=== PATIENT | male | born 1970 | race Caucasian/White ===

== ENCOUNTER → 2018-04-04 06:27 | Outpatient (CLI) | payer BC, SELFPAY ==
--- NOTE | 2018-04-04 06:30 | CA_ITS ---
PROCEDURE: 2-D M-mode and color Doppler study INDICATIONS FOR THE TEST: Chest pain X COPD Heart Murmur Tobacco Smoking Palpitations Fatigue Syncope Edema HypertensionXDiabetes Mellitus Rheumatic Fever SOBXDOE Obesity Hyperlipidemia Family History HD Additional History SVT PATIENT INFORMATION HEIGHT: 71 WEIGHT:187 GENDER: Male B/P:150/104 2-D/M-MODE INTERPRETATION: 2-D MEASUREMENTS OBSERVED VALUES IN CMS Right Ventricular Dimension (RVDd) 1.6 Interventricular Septum (Thickness)(IVsd) .9 Left Ventricular Internal Dimensions(LVIDd) 5.2 Left Ventricular Posterior Wall (Thickness)(LVPWd) 1.2 Aortic Root 3.3 Aortic Cusp Separation 1.9 Left Atrial Dimensions (LAD) 3.7 2D 1. Left atrium is qualitatively mildly enlarged, left ventricle is normal size, mild concentric left ventricular hypertrophy, visually estimated ejection fraction 55% with no obvious regional wall motion abnormality. 2. The right atrium and right ventricle are normal size and contractility. 3. The aortic valve is minimally thickened and fibrosed. 4. The mitral and tricuspid valve leaflets are minimally thickened. 5. The pulmonic valve is poorly visualized. 6. No significant pericardial effusion noted. DOPPLER INTERROGATION: Doppler interrogation of the aortic, mitral and tricuspid valvular presence of mild mitral and tricuspid regurgitation, tricuspid and jet velocity insufficient for calculation of the right ventricular systolic pressure, grade 1 diastolic dysfunction seen without tissue Doppler evidence of raised left atrial pressure. CONCLUSION: 1. Mildly enlarged left atrium, normal left ventricular size, mild concentric left ventricular hypertrophy, visually estimated ejection fraction 55% with no obvious regional wall motion abnormality, grade 1 diastolic dysfunction seen without tissue Doppler evidence of raised left atrial pressure. 2. Mild mitral and tricuspid regurgitation. 3. No significant pericardial effusion noted.
--- NOTE | 2018-04-04 06:30 | NM_ITS ---
History and Indications: Hypertension, hyperlipidemia, shortness of breath Procedure: Patient exercised on Rehan protocol 8 minutes and 44 seconds, resting heart rate was 76 resting blood pressure 151/96, with exercise maximum heart rate achieved was 1 58 bpm which is equal to 93% of the maximum] heart rate and a blood pressure was 198/80. Test was started due to shortness of breath patient denied complained of chest pain. Patient has good exercise capacity achieved 10.1mets of workload on treadmill, the blood pressure response to exercise was adequate. Electrocardiogram: Resting electrocardiogram showed sinus rhythm, with exercise occasional premature ventricular complex seen, less than 1.[address] segment depression noted from the baseline EKG. The EKG portion of the exercise Myoview is negative for ischemia. Cardiac stress and resting SPECT images: Cardiac stress and rest SPECT images were obtained using technetium 99 Myoview 31.7 mCi at stress 10.3 mCi at rest. Gated SPECT further analysis of segmental wall motion and calculation of the ejection fraction also done. Cardiac stress and rest images show uniform myocardial activity without any segmental perfusion abnormality, computer derived ejection fraction is 60% with no obvious regional wall motion abnormality, right ventricle is normal size and contractility. Conclusion: 1. The EKG portion of the exercise Myoview is negative for ischemia, patient has good exercise capacity achieved 10.1mets of workload on treadmill, the blood pressure response to exercise was adequate, there was no exercise-induced chest discomfort. 2. No obvious scintigraphic evidence of reversible ischemia seen computer derived ejection fraction is 50% with no obvious regional wall motion abnormality, right ventricle is normal size and contractility. 3. Normal exercise Myoview study.
== END ==
PROVIDERS: Family Provider Nurse Practitioner Family; PCP Nurse Practitioner; Visit Provider Internal Medicine
DX: I47.1 Supraventricular tachycardia (principal); I11.9 Hypertensive heart disease without heart failure
CPT/HCPCS: 78452; 93017; 93306; A9502

== ENCOUNTER → 2020-05-13 10:21 | Outpatient (CLI) | payer BC, SELFPAY ==
--- NOTE | 2020-05-13 10:35 | XR_ITS ---
PROCEDURE: XR ANKLE RT MIN 3V CLINICAL INDICATION: RT ANKLE INJURY Pain and bruising COMPARISON: No exams were available for comparison FINDINGS: No fracture or dislocation. No lytic or blastic change. There is normal mineralization. The joint spaces are well-preserved. No significant degenerative/arthritic changes. No erosive changes evident. Other findings:None. IMPRESSION: No acute findings. Dictated by: Ryan Stinson MD 05/13/2020 14:29 Electronically signed by Ryan Stinson MD in [place] 05/13/2020 14:29
== END ==
PROVIDERS: PCP Family Medicine; Visit Provider Nurse Practitioner Family
DX: S99.911A Unspecified injury of right ankle, initial encounter (principal)
CPT/HCPCS: 73610

== ENCOUNTER → 2021-02-10 15:57 | Outpatient (CLI) | payer BC, SELFPAY ==
[2021-02-10 17:07] LABS: Coronavirus 19 IgG Antibody Positive (Negative); Coronavirus 19 IgM Antibody Negative (Negative)
== END ==
PROVIDERS: Visit Provider Internal Medicine Gastroenterology
DX: Z01.812 Encounter for preprocedural laboratory examination (principal); Z20.822 Contact with and (suspected) exposure to COVID-19; Z12.11 Encounter for screening for malignant neoplasm of colon
CPT/HCPCS: 36415; 86328

== ENCOUNTER 2021-02-13 10:38 | Day surgery (SDC) | payer BC, SELFPAY ==
[2021-02-07 16:35] VITALS: BMI 26.4
[2021-02-13 11:08] VITALS: BP 130/70; PULSE 97; RESP 18; TEMP 36.3; O2SAT 99
--- NOTE | 2021-02-13 12:24 | HMH.PROC ---
[facility] Procedure Note Procedure Note:: Colonoscopy Procedure Report: Colonoscopy with cold snare polypectomy Endoscopist: Mamadou Buchanan II, MD Referring physician: Eladio Camacho MD Date of Procedure: February 13, 2021 Equipment: Olympus 190 variable stiffness pediatric colonoscope Sedation: MAC sedation Indication: Mr. Trujillo is a 51-year-old gentleman who is here for initial screening colonoscopy. He reports no abdominal pain, weight loss, change in his bowel habits or rectal bleeding. He reports no family history of colon cancer. Procedure: Prior to the procedure, a history and physical exam was performed, and patient's medications and allergies were reviewed. The risks, benefits and alternatives of the sedation and procedure were discussed with the patient. All questions were answered and informed consent was obtained. The patient was brought to the procedure room. Patient identification and proposed procedure were verified by the physician and the nurse. The patient was placed in a left lateral decubitus position and the scope was passed under direct vision. Throughout the procedure, the patient's blood pressure, pulse, and oxygen saturations were monitored continuously. The colonoscopy was accomplished without difficulty. The patient tolerated the procedure well. Findings: On digital rectal examination there was normal rectal tone. There were no external hemorrhoids. There was an early prostate nodule or firmness in the left upper lobe of the prostate. The remainder of the prostate was soft and symmetric. The colonoscope was introduced through the anal canal to the rectum and advanced to the cecum. The ileocecal valve and appendiceal orifice were identified. The scope was advanced a short distance into the ileum which appeared grossly normal. The scope was then withdrawn into the colon. The cecum, ascending and transverse colon and mucosa were grossly normal. There were 2 diminutive colon polyps (descending x1 (3 mm) and rectum x1 (3 mm)) which were both removed via cold snare polypectomy. There were scattered diverticuli throughout the descending and sigmoid colon (LEFT colon). The rectum itself was normal. Upon retroflexion within the rectum there were grade 1-2 internal hemorrhoids. The preparation was excellent throughout with [place] Preparation Score of 9. The cecal time was 12 minutes. Impression: 1. Diminutive colonic polyps x2 2. Left-sided diverticulosis 3. Grade 1-2 internal hemorrhoids 4. Possible early prostate nodule versus firm margin Plan: I will follow up the polyp pathology and recommend repeat colonoscopy again in 7-10 years based upon the polyp histology. I would encourage bulk fiber supplementation on a long-term daily maintenance basis. I would recommend diagnostic PSA if he has not had one recently.
[2021-02-13 12:26] VITALS: BP 86/57; PULSE 85; RESP 16; TEMP 36.1; O2SAT 95
[2021-02-13 12:36] VITALS: BP 88/56; PULSE 84; RESP 16; O2SAT 95
[2021-02-13 12:46] VITALS: BP 99/67; PULSE 84; RESP 16; O2SAT 98
[2021-02-13 12:56] VITALS: BP 100/70; PULSE 79; RESP 16; O2SAT 96
[2021-02-13 13:15] VITALS: BP 114/81; PULSE 77; RESP 16; TEMP 36.3; O2SAT 97
[2021-02-13 14:40] LABS: Prostate Specific Ag Screen 2.3 ng/ml (0.0-4.0)
--- NOTE | 2021-02-13 15:39 | HMH.ANESCL ---
[facility] Anesthesia Checklist - Patient Identification Patient Identification: Arm Band - Structural Data Admitted From: Home Planned Operative Procedure/s: Colonoscopy Consent for Planned Operative Procedure(s) Verified: Yes Verified Documents: Surgical Consent, History and Physical - Airway Assessment C-Spine Mobility Assessed: Yes TMJ Mobility Assessed: Yes Dentition: Good Dentition - Neurological Assessment Level of Consciousness: Awake, Alert - Anesthesia Plan Anesthesia Risk discussed: Yes Anesthesia Plan: Verified ASA Class: II Anesthesia Type: MAC [facility] History Medical History: Reports:: Supraventricular Tachycardia Denies:: Atrial Fibrillation, Cancer, Diabetes Mellitus Type 1, Diabetes Mellitus Type 2, Internal Pacemaker, MRSA, Myocardial Infarction, Seizures *Have you ever received a pneumonia vaccine?: No *Have you received a flu vaccine this season?: Yes Anesthesia experience/problems:: None Other Surgeries: Yes: No Previous Surgery. No: CABG, Coronary Stent, Pacemaker, Other Valve Replacement Amputation: No - *Social History Last grade of school completed: High school graduate Smoking Status: Never smoker Alcohol Intake: current Alcohol Intake Frequency:: a few times a month Substance Use Type: denies use *Occupational Status:: employed Housing: house Household Members: none *Travel in the last 8 weeks: None Family Hx:: No significant family history
== END 2021-02-13 13:15 | disposition home or self-care (01) ==
LOC: OUTP 10:39
PROVIDERS: PCP Family Medicine; Visit Provider Internal Medicine Gastroenterology
PROC: 0DJD8ZZ Inspection of Lower Intestinal Tract, Via Natural or Artificial Opening Endoscopic (ICD-10-PCS; CPT 45378; principal; 2021-02-13 12:00)
DX: Z12.11 Encounter for screening for malignant neoplasm of colon (principal); K63.5 Polyp of colon; K57.30 Diverticulosis of large intestine without perforation or abscess without bleeding; K64.0 First degree hemorrhoids; I10 Essential (primary) hypertension; Z86.79 Personal history of other diseases of the circulatory system; Z88.0 Allergy status to penicillin; Z79.899 Other long term (current) drug therapy
CPT/HCPCS: 45385; G0103; J2704

== ENCOUNTER → 2021-06-27 13:02 | Outpatient (CLI) | payer BC, SELFPAY ==
--- NOTE | 2021-06-27 13:05 | XR_ITS ---
PROCEDURE: XR KNEE RT 3V CLINICAL INDICATION: RT ANTERIOR KNEE PAIN, SWELLING OF RT KNEE JOINT COMPARISON: No exams were available for comparison FINDINGS: No fracture or dislocation. No lytic or blastic change. There is normal mineralization. There are minimal osteoarthritic changes involving the medial compartment and patellofemoral joint. No fracture or dislocation. No lytic or blastic change. Other findings:None. IMPRESSION: Minimal osteoarthritic change Dictated by: Ryan Stinson MD 06/27/2021 13:52 Ryan Stinson MD in [place] 06/27/2021 13:52
== END ==
PROVIDERS: PCP Family Medicine; Visit Provider Nurse Practitioner Family
DX: M25.561 Pain in right knee (principal); M25.461 Effusion, right knee
CPT/HCPCS: 73562

== ENCOUNTER 2022-02-27 15:42 | Emergency (ER) | payer BC, SELFPAY ==
[2022-02-27 16:18] VITALS: BP 126/93; PULSE 104; RESP 18; TEMP 37.2; O2SAT 100; BMI 27.1
--- NOTE | 2022-02-27 16:28 | HMH.EDUTC ---
[facility] [place] Disposition Clinical Impression: Viral syndrome Disposition: Home, Self-Care Condition on Discharge: Good Instructions: DI for Viral Syndrome Additional Instructions: Drink plenty of fluids. Take tylenol or ibuprofen for pain or fever. Follow up with your regular doctor. GO TO THE ER FOR ANY WORSENING SYMPTOMS Prescriptions: Ibuprofen [Ibuprofen 600mg Tablet] 600 mg PO Q6HP PRN #30 tab PRN Reason: Mild Pain Transmission Status: Received by [id number] Referrals: Doris Joe APRN [Primary Care Provider] - Time of Disposition: 17:15 Medical Decision Making - Medical Records Medical records reviewed: No: I reviewed the patient's medical records. - Niraj Inquiry Pt receiving controlled substance: No Vital Signs: 02/27/22 16:18 02/27/22 17:46 Temperature 99.0 F 99.0 F Temperature Source Oral Pulse Rate 90 Pulse Rate [Radial] 104 H Respiratory Rate 18 18 Blood Pressure 126/80 Blood Pressure [Right Arm] 126/93 H Blood Pressure Mean [Right Arm] 104 02 Sat by Pulse Oximetry 100 - Lab Data Lab results reviewed: Yes: I reviewed the patient's lab results. Lab Results 02/27/22 16:14: Influenza Type A Ag Negative, Influenza Type B Ag Negative 02/27/22 16:14: Group A Strep Rapid Negative Orders (Tests/Meds): ORDERS Category Date Time Status Strep Screen Confirmation Stat Micro 02/27/22 16:14 Received [facility] [place] HPI - General Stated complaint: Just not feeling good, body aches Time Seen by Provider: 02/27/22 16:29 Mode of Arrival: Ambulatory Source of Information: Patient Limitations: No Limitations Description of Symptoms (Recalled from Triage Doc. by RN): pt c/o not feeling well. he feels achy, slight cough, runny nose. generalized discomfort HEENT Symptoms (Recalled from RN notes): Yes Resp Symptoms (Recalled from RN notes): Yes Skin Symptoms (Recalled from RN notes): No MS Symptoms (Recalled from RN notes): No Functional Status (Recalled from RN notes): wnl - History of Present Illness Provider Complaint: He states that he has been feeling bad for the past 4 days. He has started to feel better today, but then he got very fatigued at work. He came here after work to be checked. - Related Data Home Medications Medication Instructions Recorded Confirmed lisinopriL [Prinivil 20mg Tablet] 20 mg PO DAILY 02/07/21 02/13/21 Previous Rx's Medication Instructions Recorded Ibuprofen [Ibuprofen 600mg 600 mg PO Q6HP PRN #30 tab 02/27/22 Tablet] Allergies Allergy/AdvReac Type Severity Reaction Status Date / Time Penicillins Allergy Unknown Verified 02/27/22 16:21 - Worker's Comp Is this a Worker's Comp case?: No [facility] History - Hepatitis A Screen Attestation statement:: This patient has been screened for Hepatitis A risk factors. I have reviewed the patient's past medical history: Yes Medical History: Reports:: Supraventricular Tachycardia Denies:: Atrial Fibrillation, Cancer, Diabetes Mellitus Type 1, Diabetes Mellitus Type 2, Internal Pacemaker, MRSA, Myocardial Infarction, Seizures Other Surgeries: Yes: No Previous Surgery. No: CABG, Coronary Stent, Pacemaker, Other Valve Replacement Amputation: No - Social History Smoking Status: Never smoker Alcohol Intake: current Alcohol Intake Frequency:: a few times a month Substance Use Type: denies use Occupational Status: employed Housing: house Household Members: none Family Hx:: No significant family history ROS Obtained: Yes All systems reviewed & no additional complaints - Constitutional Constitutional: Reports as per HPI - Eyes Eyes: Reports eye discharge - ENT Ears, Nose, Mouth, and Throat: Reports as per HPI - Cardiovascular Cardiovascular: Denies chest pain - Respiratory Respiratory: Reports chest congestion, Reports cough, Denies dyspnea, Denies stridor, Denies wheezing Physical Exam - General General appearance: alert, in no apparent dis
[2022-02-27 16:30] LABS: UTC Influenza A Antigen Negative (Negative); UTC Influenza B Antigen Negative (Negative)
[2022-02-27 16:53] LABS: Strep Scrn Group A (Rapid) Negative (Negative)
[2022-02-27 17:46] VITALS: BP 126/80; PULSE 90; RESP 18; TEMP 37.2
== END 2022-02-27 17:47 | disposition home or self-care (01) ==
PROVIDERS: Emergency Provider Nurse Practitioner Family; PCP Nurse Practitioner Family
DX: B34.9 Viral infection, unspecified (principal); M79.10 Myalgia, unspecified site; I47.1 Supraventricular tachycardia; Z79.1 Long term (current) use of non-steroidal anti-inflammatories (NSAID); Z79.899 Other long term (current) drug therapy; Z88.0 Allergy status to penicillin
CPT/HCPCS: 87430; 87804; 99213; G0463

== ENCOUNTER → 2022-05-12 10:00 | Outpatient (CLI) | payer BC, SELFPAY ==
[2022-05-12 11:10] LABS: Chloride 108 mmol/L (98-107); Sodium 139 mmol/L (136-145)
[2022-05-12 11:11] LABS: Potassium 4.5 mmoL/L (3.5-5.1)
[2022-05-12 11:13] LABS: Alanine Aminotransferase 85 U/L (12-78); Alkaline Phosphatase 69 U/L (38-126); Anion Gap 11.5 mEq/L (5-15); Aspartate Amino Transferase 58 U/L (17-59); Bilirubin,Total 0.7 mg/dl (0.2-1.3); Blood Urea Nitrogen 13 mg/dl (9-20); Carbon Dioxide 24 mmol/L (22.0-30.0); Cholesterol 240 mg/dl (140-200); Estimated Glomerular Filt Rate 88 ml/min (>60); GFR (African American) 106 ML/MIN (>60)
[2022-05-12 11:14] LABS: Albumin Level 4.6 g/dl (3.5-5.0); Albumin/Globulin Ratio 1.6 (1.1-1.8); Calcium 9.7 mg/dl (8.4-10.2); Chol/HDL Ratio 5.3 (1-3.5); Globulin 2.8 g/dL (1.3-3.2); Glucose 119 mg/dl (74-100); HDL Cholesterol 45 mg/dl (40-60); Total Protein,Serum 7.4 g/dl (6.3-8.2)
[2022-05-12 11:15] LABS: Triglycerides 441 mg/dl (30-150)
[2022-05-12 11:26] LABS: Direct LDL Cholesterol 107.93 mg/dL (100-129)
[2022-05-12 11:45] LABS: Prostate Specific Ag Screen 2.1 ng/ml (0.0-4.0)
== END ==
PROVIDERS: PCP Nurse Practitioner Family; Visit Provider Nurse Practitioner Family
DX: I10 Essential (primary) hypertension (principal); Z13.29 Encounter for screening for other suspected endocrine disorder; Z12.5 Encounter for screening for malignant neoplasm of prostate; Z79.899 Other long term (current) drug therapy
CPT/HCPCS: 36415; 80053; 80061; 84443; G0103

== ENCOUNTER → 2023-01-29 15:23 | Outpatient (CLI) | payer BC, SELFPAY ==
[2023-01-29 16:50] LABS: Basophils % 0.5 % (0.1-2.0); Eosinophils # 0.1 K/mm3 (0.0-0.4); Eosinophils % 1.2 % (0.1-12.0); Hematocrit 49.4 % (42.0-52.0); Hemoglobin 16.1 g/dL (14.1-18.0); Lymphocytes # 2.1 K/mm3 (0.7-4.5); Lymphocytes % 21.9 % (10-50); Mean Corpuscular HGB Conc 32.7 g/dL (31.8-35.4); Mean Corpuscular Hemoglobin 28.6 pg (27.0-31.2); Mean Corpuscular Volume 87.7 fl (80-94); Mean Platelet Volume 8.3 fl (7.4-10.4); Monocytes # 0.6 K/mm3 (0.1-1.0); Monocytes % 5.8 % (1.7-9.3); Neutrophils # 6.6 K/mm3 (1.8-7.8); Neutrophils % 70.6 % (37.0-80.0); Platelet Count 377 K/mm3 (142-424); Red Blood Count 5.64 M/mm3 (4.60-6.20); Red Cell Distribution Width 13.8 % (11.5-17.5); White Blood Count 9.4 K/mm3 (4.8-10.8)
[2023-01-29 17:16] LABS: Direct LDL Cholesterol 125.15 mg/dL (100-129)
[2023-01-29 17:18] LABS: Troponin I < 0.01 ng/ml (0.00-0.034)
[2023-01-29 17:21] LABS: Free T4 (Free Thyroxine) 1.12 ng/dl (0.78-2.19)
[2023-01-29 17:23] LABS: Alanine Aminotransferase 68 U/L (12-78); Albumin/Globulin Ratio 1.8 (1.1-1.8); Alkaline Phosphatase 42 U/L (38-126); Anion Gap 11.6 mEq/L (5-15); Aspartate Amino Transferase 42 U/L (17-59); Bilirubin,Total 0.5 mg/dl (0.2-1.3); Blood Urea Nitrogen 23 mg/dl (9-20); Carbon Dioxide 24 mmol/L (22.0-30.0); Chloride 104 mmol/L (98-107); Chol/HDL Ratio 5.3 (1-3.5); Cholesterol 226 mg/dl (140-200); Estimated Glomerular Filt Rate 57 ml/min (>60); GFR (African American) 69 ML/MIN (>60); Globulin 2.8 g/dL (1.3-3.2); Glucose 87 mg/dl (74-100); HDL Cholesterol 43 mg/dl (40-60); Magnesium 2.1 mg/dl (1.6-2.3); Potassium 4.6 mmoL/L (3.5-5.1); Sodium 135 mmol/L (136-145); Total Protein,Serum 7.8 g/dl (6.3-8.2); Triglycerides 300 mg/dl (30-150); VLDL Cholesterol 60 mg/dL (0-40)
[2023-01-29 17:36] LABS: Thyroid Stimulating Hormone 3.59 uIU/mL (0.465-4.68)
[2023-01-29 17:47] LABS: Ferritin 394 ng/ml (17.9-464)
[2023-01-29 17:56] LABS: Vitamin B12 266 pg/mL (239-931)
== END ==
PROVIDERS: PCP Nurse Practitioner Family; Visit Provider Nurse Practitioner Family
DX: R06.02 Shortness of breath (principal); R07.9 Chest pain, unspecified; Z98.890 Other specified postprocedural states
CPT/HCPCS: 36415; 80053; 80061; 82607; 82728; 83735; 84439; 84443; 84484; 85025

== ENCOUNTER → 2023-07-22 13:25 | Outpatient (CLI) | payer BC, SELFPAY ==
--- NOTE | 2023-07-22 13:27 | XR_ITS ---
FINAL REPORT CLINICAL HISTORY: Left shoulder pain, limited ROM COMPARISON: None FINDINGS: LEFT SHOULDER 3 views demonstrate no acute fracture or dislocation. The joint spaces appear normal. The visualized bony structures are well aligned. No soft tissue abnormality is seen. IMPRESSION: No acute process. Reviewed, Interpreted and Dictated by Dino Poe III, MD Transcribed by Liz Hernandez Authenticated and [facility]
== END ==
PROVIDERS: PCP Nurse Practitioner Family; Visit Provider Internal Medicine
DX: M25.512 Pain in left shoulder (principal)
CPT/HCPCS: 73030

== ENCOUNTER → 2023-08-07 14:32 | Outpatient (CLI) | payer BC, SELFPAY ==
--- NOTE | 2023-08-07 14:32 | MR_ITS ---
FINAL REPORT CLINICAL HISTORY: Suspected rotator cuff injury/SIS. WEAKNESS AND AND PAIN IN ARM COMPARISON: None FINDINGS: Multiplanar MR imaging of the left shoulder was performed without contrast. There is a partial tear of the articular surface of the supraspinatus tendon that involves greater than 50% of the thickness of the tendon. This tear extends to the anterior footprint of the infraspinatus tendon. No significant degenerative signal is noted in the acromioclavicular joint. There is a small amount of fluid in the subacromial subdeltoid bursa. The glenoid labrum is intact. The long head of the biceps tendon is intact. No significant glenohumeral joint effusion is seen. There is no evidence of fracture or dislocation. The musculature is intact. There is no evidence of soft tissue mass. IMPRESSION: There is a partial-thickness articular surface supraspinatus tendon tear involving greater then 50% of the thickness of the tendon which extends to the anterior footprint of the infraspinatus tendon. There is a small amount of fluid in the subacromial subdeltoid bursa. Reviewed, Interpreted and Dictated by Dino Poe III, MD Transcribed by Liz Hernandez Authenticated and [facility]
== END ==
LOC: RAD 14:32
PROVIDERS: PCP Internal Medicine; Visit Provider Internal Medicine
DX: S46.002A Unspecified injury of muscle(s) and tendon(s) of the rotator cuff of left shoulder, initial encounter; Y99.9 Unspecified external cause status; M75.42 Impingement syndrome of left shoulder
CPT/HCPCS: 73221

== ENCOUNTER 2023-10-07 10:00 | Outpatient (RCR) | payer BC, SELFPAY ==
--- NOTE | 2023-08-08 15:43 | HMH.OTOPEV ---
OT Inpatient Evaluation Rehab OT Outpatient Eval Start: 08/08/23 15:31 Freq: Status: Active Protocol: Document 08/08/23 15:31 RMARSHALAdelaide (Rec: 08/08/23 15:43 [email or web address] [id number]) E-signed By Stephania Mccauley, OT Outpatient Therapy Subjective History Subjective History Pt is a 53 year old male who reports to therapy for initial evaluation to left shoulder. Pt reports he has worked fulltime at [employer] and recently retired. During his job, for several years he has required repetitive use of bilateral UE's. He had pain intermittently while working, but since retiring (January 2023 ) his shoulder has become more painful and stiff . Pt has had a MRI completed and the following are the findings: There is a partial-thickness articular surface supraspinatus tendon tear involving greater then 50% of the thickness of thetendon which extends to the anterior footprint of the infraspinatus tendon. There is a small amount of fluid in the subacromial subdeltoid bursa. Upon observation, pt's AROM and strength are declined at left shoulder. Pt has most of his pain with flexion and internal rotation. Luckily, pt is right hand dominant. Pt is planning on going to see ortho for an evaluation in the near future. Therapist will continue to see patient twice a week in order to address left shoulder deficits. New diagnosis of cancer in past 12 No months? Chief Complaint Pain,Stiff,Weakness Symptom Type Ache,Throb,Sharp,Dull,Stabbing Symptoms Relieved By Nothing Symptoms Aggravated By Physical Activity,Lifting Prior Functional Limitations None Current Functional Limitations Reaching,Lifting,Housework, Dressing,Sleeping,Recreation Activity Symptom Description Intermittent,Activity Dependent Level of pain today (0-10) 0 Pain scale - at its best (0-10) 0 Pain scale - at its worst (0-10) 6 Shoulder/Elbow Eval Shoulder Objective Measurements Shoulder ROM Left Shoulder ROM Limitations Pain Shoulder Abduction Active Range of 148 degrees Motion (degrees) Shoulder Flexion Active Range of Motion 115 degrees (degrees) Query Text: Shoulder External Rotation Active Range 75 degrees of Motion (degrees) Shoulder Internal Rotation Active Range 20 degrees of Motion (degrees) pain with active ROM shoulder exam left standard pain with passive ROM shoulder exam left standard decreased ROM shoulder exam standard left Shoulder MMT Shoulder Abduction Strength Grade 3 Fair Shoulder Flexion Strength Grade 3 Fair Shoulder External Rotation Strength 3 Fair Grade Shoulder Internal Rotation Strength 3 Fair Grade Shoulder Strength Patient Testing Sitting Position Elbow Objective Measurements QuickDASH Activities Please rate your ability to do the following activities in the last week by selecting the number below the appropriate response. 1. Open a tight or new jar. Mild difficulty 2. Do heavy field support rep (e.g., wash No difficulty jin, floors). 3. Carry a shopping bag or briefcase. Mild difficulty 4. Wash your back. Mild difficulty 5. Use a knife to cut food. No difficulty 6. Recreational activities in which you Mild difficulty take some force or impact through your arm, shoulder, or hand (e.g., golf, hammering, tennis, etc.). 7. During the past week, to what extent Moderately has your arm, shoulder or hand problem interfered with your normal social activities with family, friends, neighbors or groups? 8. During the past week, were you Slightly limited limited in your work or other regular daily activites as a result of your arm, shoulder or hand problem? 9. Arm, shoulder or hand pain. Moderate 10. Tingling (pins and needles) in your None arm, shoulder or hand. 11. During the past week, how much Mild difficulty difficulty have you had sleeping because of the pain in your arm, shoulder or hand? Quick DASH 21 OT Outpatient Assessment Impairments Problems/Impairments Palpation Tenderness,Impaired Range of Motion,Impaired Strength,Impaired Endurance, Impaired Lifting,Impaired Dressing,Impaired Household Care,Impaired Recreational Activities,Subjective C/O Pain Prognosis Rehab Potential Good Clinical Impression Consistent with Diagnosis Yes Short Term Goals Number of Weeks 3 Increase Range of Motion Yes: Flex: 125 Abd: 155 ER: 80 IR: 50 Increase Strength Yes: 3+,4-/5 throughout left shoulder Increase Endurance Yes: Pt will tolerate L shoulder exercises for ~20 min prior to rest. 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 Decrease Subjective C/O Pain Yes: 2/10 at worst Patient to be Ind w/ Advanced HEP Yes: Advanced strengthening exercises Outpatient Therapy Plan of Care Treatment Plan May Include Therapeutic Exercise Including Home Yes Exercise Program Manual Therapy Techniques Yes Neuromuscular Re-education Yes Therapeutic Activities to Return to Yes Previous Functional/Work Level ADL/Self Care Education Yes Dry Needling Yes Thermal Modalities Yes Electrical Stimulation Yes Ultrasound/Phonophoresis Yes Iontophoresis Yes Orthotics/Bracing/Splinting Yes Massage Yes Eval/Re-Eval Yes Frequency Times per week 2 Duration Number of Weeks 6 Addendums This patient is a candidate for social No or vocational rehab? Patient/Guardian verbally acknowledges Yes understanding of treatment program and consents to further treatment? Patient/Guardian verbally acknowledges Yes understanding of diagnosis, prognosis and goals for treatment? Eval Complexity OT Charge 62714 - Moderate Complexity PHYSICIAN CERTIFICATION: I certify the specified therapy services for Darius Trujillo are required, authorized, and reviewed every 30 days.
--- NOTE | 2023-09-09 11:20 | HMH.RHREAS ---
Rehab Reassessment Rehab OP Re-assessment Start: 08/08/23 15:31 Freq: Status: Active Protocol: Document 09/09/23 11:13 JABIER (Rec: 09/09/23 11:19 JABIER [id number]) E-signed By Stephania Mccauley OT Rehab Re-assessment Subjective Subjective The pain isn't as often, but it's still there. Objective Objective Notes Pt continues to be seen to address left shoulder deficits . Each session, pt engages in AROM, AAROM, and strengthening exercises. Pt also receives prom manual therapy to left shoulder in all planes; flexion, abduction , ER, and IR. Modalities are provided to decrease pain/ inflammation. Assessment Progress Assessment Progressing as Expected Assessment Notes Pt very consistent about attending therapy sessions. Pt demonstrates improved AROM in all planes except for IR. IR remains significantly limited. Pt reports his pain still reaches a 7/10 at worst, but his pain is less frequent . Pt does have a follow up appointment with ortho set up at the beginning of October for re-evaluation of progress with therapy. Current AROM L shoulder Flex: 175 degrees Abd: 165 degrees IR: 25 degrees ER: 90 degrees Patient goals met [address], 3, and 5 Goals Not Met See below Revised Goals ST and 4 LT-5 New AROM goals: Flex: 175 degrees Abd: 170 degrees IR: 50 degrees ER: 90 degrees Plan Plan Continue with OT plan of care at this time until returning to doctor. Frequency of Therapy 2x's a week Duration of therapy 4 more weeks Time and Billing Re-Eval Time 12 Re-Eval Billing Units 1 PHYSICIAN CERTIFICATION: I certify the specified therapy services for Darius Trujillo are required, authorized, and reviewed every 30 days.
== END 2023-10-07 11:00 | disposition home or self-care (01) ==
LOC: OT 10:00
PROVIDERS: PCP Internal Medicine; Visit Provider Internal Medicine
DX: M25.512 Pain in left shoulder (principal); S46.002A Unspecified injury of muscle(s) and tendon(s) of the rotator cuff of left shoulder, initial encounter
CPT/HCPCS: 97010; 97014; 97110; 97140; 97164; 97166; 97530; G0283

== ENCOUNTER 2023-11-21 21:33 | Outpatient (CLI) | payer BC, SELFPAY ==
[2023-11-21 16:54] LABS: Adenovirus,PCR Not Detected (NotDetected); Coronavirus 19, PCR Not Detected (NotDetected); Coronavirus 229E Not Detected (NotDetected); Coronavirus NL63 Not Detected (NotDetected); Coronavirus OC43 Not Detected (NotDetected); Coronovirus HKU1,PCR Not Detected (NotDetected); Human Metapneumovirus Not Detected (NotDetected); Influenza A, PCR Not Detected (NotDetected); Influenza AH1, 2009 Not Detected (NotDetected); Influenza AH1, PCR Not Detected (NotDetected); Influenza AH3,PCR Not Detected (NotDetected); Influenza B, PCR Not Detected (NotDetected); Parainfluenza 1, PCR Not Detected (NotDetected); Parainfluenza 2, PCR Not Detected (NotDetected); Parainfluenza 3, PCR Not Detected (NotDetected); Parainfluenza 4, PCR Not Detected (NotDetected); Respiratory Syncytial Virus Not Detected (NotDetected); Rhinovirus/Enterovirus Not Detected (NotDetected)
== END 2023-11-21 23:59 ==
LOC: LAB.DROPOF 21:34
PROVIDERS: PCP Internal Medicine; Visit Provider Internal Medicine
DX: R05.9 Cough, unspecified (principal); R06.02 Shortness of breath; J02.9 Acute pharyngitis, unspecified; R09.81 Nasal congestion; R53.82 Chronic fatigue, unspecified
CPT/HCPCS: 87632; 87635

== ENCOUNTER 2024-01-20 10:13 | Outpatient (CLI) | payer BC, SELFPAY ==
[2024-01-20 10:45] LABS: Basophils # 0.1 K/mm3 (0-0.2); Basophils % 1.3 % (0.1-2.0); Eosinophils # 0.2 K/mm3 (0.0-0.4); Eosinophils % 3.3 % (0.1-12.0); Hematocrit 47.5 % (42.0-52.0); Hemoglobin 15.4 g/dL (14.1-18.0); Lymphocytes # 2.2 K/mm3 (0.7-4.5); Lymphocytes % 30.8 % (10-50); Mean Corpuscular HGB Conc 32.5 g/dL (31.8-35.4); Mean Corpuscular Hemoglobin 28.9 pg (27.0-31.2); Mean Corpuscular Volume 88.9 fl (80-94); Mean Platelet Volume 8.4 fl (7.4-10.4); Monocytes # 0.5 K/mm3 (0.1-1.0); Monocytes % 6.5 % (1.7-9.3); Neutrophils # 4.1 K/mm3 (1.8-7.8); Platelet Count 358 K/mm3 (142-424); Red Blood Count 5.34 M/mm3 (4.60-6.20); Red Cell Distribution Width 14.3 % (11.5-17.5); White Blood Count 7.1 K/mm3 (4.8-10.8)
[2024-01-20 11:12] LABS: Alanine Aminotransferase 58 U/L (12-78); Albumin Level 4.7 g/dl (3.5-5.0); Albumin/Globulin Ratio 1.7 (1.1-1.8); Alkaline Phosphatase 49 U/L (38-126); Anion Gap 13.1 mEq/L (5-15); Aspartate Amino Transferase 39 U/L (17-59); Bilirubin,Total 0.5 mg/dl (0.2-1.3); Blood Urea Nitrogen 20 mg/dl (9-20); Calcium 10.3 mg/dl (8.4-10.2); Carbon Dioxide 27 mmol/L (22.0-30.0); Chloride 107 mmol/L (98-107); Chol/HDL Ratio 4.8 (1-3.5); Cholesterol 230 mg/dl (140-200); Estimated Glomerular Filt Rate 63 ml/min (>60); GFR (African American) 76 ML/MIN (>60); Globulin 2.7 g/dL (1.3-3.2); Glucose 116 mg/dl (74-100); HDL Cholesterol 48 mg/dl (40-60); Potassium 5.1 mmoL/L (3.5-5.1); Sodium 142 mmol/L (136-145); Total Protein,Serum 7.4 g/dl (6.3-8.2); Triglycerides 272 mg/dl (30-150); VLDL Cholesterol 54 mg/dL (0-40)
[2024-01-20 11:25] LABS: Hemoglobin A1C 6.1 % (4.0-6.0)
[2024-01-20 11:46] LABS: Prostate Specific Ag Screen 3.2 ng/ml (0.0-4.0); Thyroid Stimulating Hormone 4.66 uIU/mL (0.465-4.68)
[2024-01-20 12:16] LABS: 25-OH Vitamin D, Total 22.2 ng/mL (30-100)
[2024-01-20 12:43] LABS: Free T4 (Free Thyroxine) 1.09 ng/dl (0.78-2.19)
[2024-01-21 05:13] LABS: HIV Screen 4th Generation wRfx Non Reactive (Non Reactive)
[2024-01-21 10:14] LABS: HCV Ab Non Reactive (Non Reactive)
== END 2024-01-20 23:59 ==
LOC: LAB.DROPOF 10:13
PROVIDERS: PCP Internal Medicine; Visit Provider Internal Medicine
DX: Z00.00 Encounter for general adult medical examination without abnormal findings (principal); Z13.220 Encounter for screening for lipoid disorders; Z13.21 Encounter for screening for nutritional disorder; Z13.29 Encounter for screening for other suspected endocrine disorder; E78.1 Pure hyperglyceridemia; I11.9 Hypertensive heart disease without heart failure; E55.9 Vitamin D deficiency, unspecified; R73.9 Hyperglycemia, unspecified; Z12.5 Encounter for screening for malignant neoplasm of prostate; Z11.4 Encounter for screening for human immunodeficiency virus [HIV]
CPT/HCPCS: 80053; 80061; 82306; 83036; 84439; 84443; 85025; 86703; G0103; G0432

== ENCOUNTER 2025-04-17 10:24 | Outpatient (CLI) | payer BC, SELFPAY ==
--- OUTSIDE RECORDS SUMMARY | 2025-04-17 10:27 | XMS_ITS | Encounter Summary ---
Author Organization [place] [address] Care Team Providers Care Reading Specialist Name Role Phone Angela Hurtado APRN Primary Care Provider Filipe Arcos MD Unavailable [phone] Encounter Details Date Type Department Care Team (Late st Contact Info) Description 05/20/2018 Orders Only [facility] [address] [facility] [address] [place] [address] Filipe Arcos MD [address] [place], [place] [id number] Social History Tobacco Use Types Packs/Day Years Used Date Smoking Tobacco: Never Smokeless Tobacco: Never Alcohol Use Standard Drinks/Week Comments No 0 (1 standard drink = 0.6 oz pur e alcohol) Sex and Gender Information Value Date Recorded Sex Assigned at Not on file Legal Sex Male 9:08 AM EDT Gender Identity Not on file Sexual Orientation Not on file documented as of this encounter Plan of Treatment Not on file documented as of this encounter Procedures Procedure Name Priority Date/Time Associated Diagnosis Comments EP LAB RECORDINGS Routine 05/20/2018 1:12 PM EDT documented in this encounter Results * EP LAB RECORDINGS (05/20/2018 1:12 PM EDT) 05/20/2018 1:12 PM EDT us Filipe Arcos MD CARDIAC CATH ORDERABLES Final Result [facility] [address] [place] [id number] documented in this encounter Visit Diagnoses Not on filedocumented in this encounter Care Teams Reading Specialist Relationship Specialty Start Date End Date Angela Hurtado APRN [address] [place] [address] PCP - General Nurse Practitioner-Family 04/25/18 Filipe Arcos MD [address] [facility] [place] [address] Consulting Physician Internal Medicine - Clinical Cardiac Electrophysiology 04/25/18 documented as of this encounter
--- OUTSIDE RECORDS SUMMARY | 2025-04-17 10:27 | XMS_ITS | Clinical Summary ---
Author Organization [facility] [place] Address [address] [facility] [address] [place] [address] Phone Care Team Providers Care Piler Name Role Phone Angela Hurtado APRN Primary Care Provider [phone] Filipe Arcos MD Unavailable [phone] Allergies Active Allergy Reactions Criticality Noted Date Comments Penicillins Other (See Comments) 04/25/2018 - Medications lisinopril (PRINIVIL;ZESTRI L) 5 mg Oral Tablet Take 5 mg by mouth daily. 04/22/2018 Active esomeprazole (NEXIUM) 20 mg Oral Capsule, Delayed Release(E.C.) Take by mouth daily. Active ibuprofen (ADVIL;MOTRIN) 200 mg Oral Tablet Take by mouth every 8 hours. Active Active Problems Problem Noted Date Diagnosed Date SVT (supraventricular tachycardia) Essential hypertension Medical History Medical History Date Comments SVT (supraventricular tachycardia) Essential hypertension Social History Tobacco Use Types Packs/Day Years Used Date Smoking Tobacco: Never Smokeless Tobacco: Never Tobacco Cessation:Counseling Given: No Alcohol Use Standard Drinks/Week Comments No 0 (1 standard drink = 0.6 oz pur e alcohol) Sex and Gender Information Value Date Recorded Sex Assigned at Not on file Legal Sex Male 9:08 AM EDT Gender Identity Not on file Sexual Orientation Not on file Obstetrics History Last Filed Vital Signs Vital Sign Reading Time Taken Comments Blood Pressure 144/100 05/20/2018 5:00 PM EDT Pulse 90 05/20/2018 5:00 PM EDT Temperature 36.9 C (98.4 F) 05/20/2018 10:52 AM EDT Respiratory Rate 17 05/20/2018 5:00 PM EDT Oxygen Saturation 97% 05/20/2018 3:30 PM EDT Inhaled Oxygen Concentration - - Weight 83 kg (183 lb) 05/20/2018 10:59 AM EDT Height 180.3 cm (5' 11 ) 05/20/2018 10:59 AM EDT Body Mass Index 25.52 05/20/2018 10:59 AM EDT Plan of Treatment Health Maintenance Due Date Last Done Comments Annual Wellness Exam 01/06/1971 DTaP/TDaP/Td (1 - Tdap) 01/06/1987 Hepatitis B Vaccine (1 of 3 - 19+ 3-dose series) 01/06/1987 Cologuard 01/06/2013 Colon Cancer Screening 01/06/2013 Colonoscopy 01/06/2013 FIT 01/06/2013 Sigmoidoscopy 01/06/2013 Virtual Colonography 01/06/2013 Pneumococcal Vaccine 50+ (1 of 1 - PCV) 01/06/2018 Zoster (1 of 2) 01/06/2018 COVID-19 Vaccine ( - 2023-2 5 season) 2024 Influenza Vaccine (Season Ended) 2025 Meningococcal B Vaccine Aged Out No l onger eligible based on patient's age to complete this topic Insurance [employer] Care Teams Piler Relationship Specialty Start Date End Date Angela Hurtado APRN [address] [place] [address] PCP - General Nurse Practitioner-Family 04/25/18 Filipe Arcos MD [address] [place] [address] [place] [address] Consulting Physician Internal Medicine - Clinical Cardiac Electrophysiology 04/25/18
--- OUTSIDE RECORDS SUMMARY | 2025-04-17 10:27 | XMS_ITS | Clinical Summary ---
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 Phone Unavailable Primary Care Provider Unavailabl e Allergies Active Allergy Reactions Criticality Noted Date Comments Penicillins Other (see comments) Low 05/28/2018 Medications lisinopril (PRINIVIL,ZESTRIL) 5 MG tablet 05/22/2018 Active Active Problems Problem Noted Date Diagnosed Date Other follow-up examination 08/12/2013 Overview (03/19/2018): Routine general medical exam ination at a health care facility 01/16/2010 Overview (03/19/2018): Encounter for hearing examin ation following failed hearing screening 01/05/2010 Overview (03/19/2018): Health examination of defined subpopulation 12/20 Overview (03/19/2018): Other examination of ears and hearing 01/01/2008 Overview (03/19/2018): Social History Tobacco Use Types Packs/Day Years Used Date Smoking Tobacco: Never Smokeless Tobacco: Never Alcohol Use Standard Drinks/Week Comments Not Asked 1 (1 standard drink = 0.6 oz pur e alcohol) Intimate Partner Violence Answer Date R ecorded Insults You Not on file 01/31/2021 Threatens You Not on file 01/31/2021 Screams at You Not on file 01/31/2021 Physically Hurt Not on file 01/31/2021 Intimate Partner Violence Score Not on file 01/31/2021 Stress Answer Date Recorded Stress in your Life Not on file 08/24/2024 Dealing with Stress 3 08/24/2024 Sex and Gender Information Value Date Recorded Sex Assigned at Not on file Legal Sex Male 8:14 AM CDT Gender Identity Not on file Sexual Orientation Not on file Last Filed Vital Signs Vital Sign Reading Time Taken Comments Blood Pressure 124/86 11/12/2018 11:41 AM EST Pulse 92 11/12/2018 11:41 AM EST Temperature 36.4 C (97.5 F) 05/28/2018 6:09 AM EDT Respiratory Rate 18 11/12/2018 9:23 AM EST Oxygen Saturation 97% 05/28/2018 6:09 AM EDT Inhaled Oxygen Concentration - - Weight 83.9 kg (185 lb) 05/28/2018 6:09 AM EDT Height 180.3 cm (5' 11 ) 05/28/2018 6:09 AM EDT Body Mass Index 25.8 05/28/2018 6:09 AM EDT Plan of Treatment Health Maintenance Due Date Last Done Comments Dental Cleaning/Exam 1968 HIV Screening 1968 Hepatitis C Screening 1968 Annual Preventive Exam 01/06/1986 Hep B Infection Screening - Triple Screen 01/06/1986 Hepatitis B Immunization (1 of 3 - 19+ 3-dose series) 01/06/1987 Tetanus Diphtheria and Pertu ssis Immunization (1 - Tdap) 01/06/1987 Colorectal Cancer Screening 01/06/1998 Zoster Immunization (1 of 2) 01/06/2018 Covid-19 Immunization (1 - 2 season) 2024 Influenza Immunization (Seas on Ended) 2025 HIB Immunization Aged Out No longer e ligible based on patient's age to complete this topic HPV Immunization Aged Out No longer e ligible based on patient's age to complete this topic Hepatitis A Immunization Aged Out No longer eligible based on patient's age to complete this topic Pneumococcal: Ped (0 to 5 Yr s) and At-Risk Member (6 to 64 Yrs) Aged Out No longer e ligible based on patient's age to complete this topic Polio Immunization Aged Out No longer eligible based on patient's age to complete this topic Insurance [employer] 20
[2025-04-17 10:46] LABS: Basophils % 0.6 % (0.1-2.0); Eosinophils # 0.2 Kmm3 (0.0-0.4); Eosinophils % 3.2 % (0.1-12.0); Hematocrit 44.8 % (42.0-52.0); Hemoglobin 14.2 g/dL (14.1-18.0); Immature Granulocytes % 1.5 %; Lymphocytes % 30.5 % (10-50); Mean Corpuscular HGB Conc 31.7 g/dL (31.8-35.4); Mean Corpuscular Hemoglobin 27.7 pg (27.0-31.2); Mean Corpuscular Volume 87.5 fl (80-94); Mean Platelet Volume 9.5 fl (7.4-10.4); Monocytes # 0.5 K/mm3 (0.1-1.0); Monocytes % 7.4 % (1.7-9.3); Neutrophils # 3.7 K/mm3 (1.8-7.8); Neutrophils % 56.8 % (37.0-80.0); Nucleated Red Blood Cells # 0 10^3/uL; Nucleated Red Blood Cells % 0 %; Platelet Count 335 K/mm3 (142-424); Red Blood Count 5.12 M/mm3 (4.60-6.20); Red Cell Distribution Width 13.8 % (11.5-17.5); Red Cell Distribution Width-SD 44.2 fL; White Blood Count 6.5 K/mm3 (4.8-10.8)
[2025-04-17 11:04] LABS: Alanine Aminotransferase 47 U/L (12-78); Albumin Level 4.5 g/dl (3.5-5.0); Albumin/Globulin Ratio 1.6 (1.1-1.8); Alkaline Phosphatase 44 U/L (38-126); Anion Gap 14.4 mEq/L (5-15); Aspartate Amino Transferase 38 U/L (17-59); Bilirubin,Total 0.6 mg/dl (0.2-1.3); Blood Urea Nitrogen 17 mg/dl (9-20); Calcium 10.3 mg/dl (8.4-10.2); Carbon Dioxide 24 mmol/L (22.0-30.0); Chloride 104 mmol/L (98-107); Chol/HDL Ratio 5.8 (1-3.5); Cholesterol 215 mg/dl (140-200); Estimated Glomerular Filt Rate 77 ml/min (>60); GFR (African American) 93 ML/MIN (>60); Globulin 2.8 g/dL (1.3-3.2); Glucose 106 mg/dl (74-100); HDL Cholesterol 37 mg/dl (40-60); Potassium 4.4 mmoL/L (3.5-5.1); Sodium 138 mmol/L (136-145); Total Protein,Serum 7.3 g/dl (6.3-8.2); Triglycerides 269 mg/dl (30-150); VLDL Cholesterol 54 mg/dL (0-40)
[2025-04-17 11:15] LABS: Direct LDL Cholesterol 108.45 mg/dL (100-129)
[2025-04-17 11:27] LABS: Hemoglobin A1C 7.1 % (4.0-6.0)
== END 2025-04-17 23:59 | disposition home or self-care (01) ==
LOC: LAB 10:26
PROVIDERS: PCP Internal Medicine; Visit Provider Internal Medicine
DX: I11.9 Hypertensive heart disease without heart failure (principal); Z79.899 Other long term (current) drug therapy; Z00.00 Encounter for general adult medical examination without abnormal findings; Z13.1 Encounter for screening for diabetes mellitus
CPT/HCPCS: 36415; 80053; 80061; 83036; 85025

== ENCOUNTER 2025-05-19 08:33 | Outpatient (RCR) | payer BC, SELFPAY ==
--- NOTE | 2025-05-19 09:27 | HMH.PTOPEV ---
PT Outpatient Evaluation Rehab PT Outpatient Evaluation Start: 05/19/25 08:42 Freq: Status: Active Protocol: Document 05/19/25 08:43 LISANDRA (Rec: 05/19/25 09:27 LISANDRA [id number]) E-signed By Maria C Golden, PT Outpatient Therapy Subjective History Subjective History Pt is a 55 y/o male who reports chronic left sided low back pain without known trauma or injury. Pt reports pain is generally mild overall but seems to be worse in the morning time. Pt reports pain is also aggravated by repetitive lifting and prolonged sitting required for his job. Pt denies distal LE symptoms, paresthesia, or b/b dysfunction. Pt denies n/v, fever, night sweats or night pain. 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 Chief Complaint Pain Symptom Type Ache,Dull Symptoms Relieved By OTC Meds Symptoms Aggravated Sitting,Lifting By Current Functional Lifting,Sitting Limitations Symptom Description Intermittent Level of pain today 2 (0-10) Pain scale - at its 0 best (0-10) Pain scale - at its 2 worst (0-10) Lumbopelvic Eval Posture Lumbar Spine Posture Neutral Standing Position Palapation tenderness bilateral lumbar spinal Yes: L4-S1 tenderness paraspinal Yes: L lower lumbar PS tenderness Lumbar/Sacral Tenderness Palpation Findings Lumbar/Sacral 1/4 TTP Palpation Overall Comment Accessory Movement L4 bilateral L5 bilateral S1 bilateral Range of Motion Lumbar Spine Active 75 Flexion Range of Motion (degrees) Lumbar Spine Active 20 Extension Range of Motion (degrees) Left Lumbar Spine 15 Lateral Flexion Active Range of Motion (degrees) Right Lumbar Spine 20 Lateral Flexion Active Range of Motion (degrees) Manual Muscle Test Bilateral Knee Extension 5 Normal Strength Grade Knee Flexion 5 Normal Strength Grade Hip Flexion Strength 5 Normal Grade Hip Abduction 5 Normal Strength Grade Hip Adduction 5 Normal Strength Grade Hip Extension 4 Good Strength Grade Ankle Dorsiflexion 5 Normal Strength Grade Altered Sensation Comment equal and intact to light touch sensation bilaterally Special Tests Hip Asael (CHARISSE) Negative Left,Negative Right Test Hip Piriformis Test Negative Left,Negative Right Sciatic Nerve Negative Left,Negative Right Tension Test Unilateral Straight Negative Left,Negative Right Leg Raise (Lasegue) Test Oswestry Index Section 1 Pain Intensity The pain comes and goes and is very mild Section 2 Personal Care ( change my way of washing or dressing in order to avoid Washing,Dresing) pain Section 3 Lifting I can lift heavy weights, but it gives me extra pain Section 4 Walking I have no pain when walking Section 5 Sitting I can sit in my favorite chair for as long as I like Section 6 Standing I can stand as long as I want without pain Section 7 Sleeping Because of my pain, my normal night's sleep is less than 6 hours sleep Section 8 Social Life My social life is normal and gives me no extra pain Section 9 Traveling I get no pain when traveling Section 10 Changing Degreee of My pain fluctuates, but overall is definitely getting Pain better Score and Risk Level Oswestry Sc 5 Oswestry Risk Level Mild Disability Outpatient Therapy Assessment Impairments Problems/ Palpation Tenderness,Impaired Range of Motion,Impaired Impairmments Strength,Impaired Sitting,Impaired Driving,Impaired Lifting,Impaired Work Activities,Subjective C/O Pain, Impaired Self Care/Self Management Prognosis Rehab Potential Good Clinical Impression Consistent with Yes Diagnosis Short Term Goals Number of Weeks 2 Restore Ability to Yes: demonstrate proper lifting mechanics to assist Lift Objects to with occupation Waist Level Improve Self Care/ Yes Self Management Patient to be Ind w/ 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 Number of Weeks 4 Decreased Palpation Yes: 0/4 TTP of left lumbar PS and L4-S1 Tenderness Increase Range of Yes: Improve lumbar AROM flex to at least 80-90 Motion Increase Strength Yes: Improve core and hip ext strength to 4-4+/5 grossly to assist with function Improve Tolerance to Yes: perform work duties with pain 0-1/10 or less Work Activities Improve Oswestry Yes: Improve score to 2 or less to improve overall QOL Score Decrease Subjective Yes: Improve pain at worst to 0-1/10 to improve overall C/O Pain QOL Outpatient Therapy Plan of Care Treatment Plan May Include Therapeutic Exercise Yes Including Home Exercise Program Manual Therapy Yes Techniques Neuromuscular Re- Yes education Therapeutic Yes Activities to Return to Previous Functional/Work Level ADL/Self Care Yes Education Mechanical Traction Yes Dry Needling Yes Thermal Modalities Yes Electrical Yes Stimulation Ultrasound/ Yes Phonophoresis Iontophoresis Yes Massage Yes Group Therapy for Yes Medicare Eval/Re-Eval Yes Frequency Times per week 1-2 Duration Number of Weeks 4 Addendums This patient is a No candidate for social or vocational rehab ? Patient/Guardian Yes verbally acknowledges understanding of treatment program and consents to further treatment? Patient/Guardian Yes verbally acknowledges understanding of diagnosis, prognosis and goals for treatment? Eval Complexity PT Charges 14653 - Low Complexity Shoulder/Elbow Eval Shoulder Objective Measurements Elbow Objective Measurements PHYSICIAN CERTIFICATION: I certify the specified therapy services for Darius Trujillo are required, authorized, and reviewed every 30 days.
== END 2025-05-19 23:59 | disposition home or self-care (01) ==
LOC: PT 08:33
PROVIDERS: PCP Internal Medicine; Visit Provider Internal Medicine
DX: G89.29 Other chronic pain (principal); M54.50 Low back pain, unspecified
CPT/HCPCS: 97110; 97161

== ENCOUNTER 2025-06-09 10:00 | Outpatient (RCR) | payer BC, SELFPAY | END 2025-06-09 23:59 | disposition home or self-care (01) | LOC: PT 10:00 | PROVIDERS: PCP Internal Medicine; Visit Provider Internal Medicine | DX: M54.50 Low back pain, unspecified (principal) | CPT/HCPCS: 97110 ==